=== PATIENT | female | born 1965 | race Caucasian/White ===

== ENCOUNTER 2021-05-31 13:41 | Outpatient (REF) | payer MEDICARE, SELFPAY ==
--- NOTE | ~2021-05-31 | MM_ITS ---
EXAMINATION: MM SCREENING DIGITAL BREAST TOMOSYNTHESIS, BILATERAL CLINICAL INFORMATION: Screening. Asymptomatic. 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 The lifetime risk of breast cancer based on the Tyrer-Cuzick Model is 7%. COMPARISON: Mammography: 06/23/2019, 07/01/2017, 01/17/2015, 01/10/2015 TECHNIQUE: Digital breast tomosynthesis is performed in both the craniocaudal and mediolateral oblique views along with computer-aided detection (CAD). Synthesized 2D images are generated from the tomosynthesis. FINDINGS: There are scattered areas of fibroglandular density (ACR BI-RADS breast composition Category b). The left breast shows no significant change from prior study. Again, there is biopsy clip marker anterior upper outer quadrant corresponding to the known fibroadenoma. There is no developing density or interval mass. Neither breast shows abnormal calcifications. The bilateral axilla and skin contours are unremarkable. The right MLO view has asymmetric density with questionable radiating lines 5 cm from nipple along the posterior nipple line. There is no correlate on CC view. Patient will be recalled for additional imaging. MM/MM tomosynthesis screening BI IMPRESSION: 1. Right: Asymmetric density mid right breast on MLO view with questionable radiating lines. 2. Left: No mammographic evidence of malignancy. ASSESSMENT: BI-RADS 0: Incomplete - Need Additional Imaging Evaluation RECOMMENDATION: 1. Additional views of the right breast (3-D spot MLO, 3-D ML). 2. Targeted ultrasound if warranted after review of the additional views. 3. Radiology department staff will contact the patient for additional imaging. This patient's information was entered into a reminder system with a target due date for their next mammogram.
== END 2021-05-31 13:42 | disposition home or self-care (01) ==
LOC: HO.MAMMO 13:41
PROVIDERS: PCP Internal Medicine; Visit Provider Internal Medicine
DX: Z12.31 Encounter for screening mammogram for malignant neoplasm of breast (principal)
CPT/HCPCS: 77063; 77067

== ENCOUNTER 2021-06-17 09:00 | Outpatient (REF) | payer MEDICARE, SELFPAY ==
--- NOTE | ~2021-06-17 | MM_ITS ---
EXAMINATION: MM DIAGNOSTIC DIGITAL BREAST TOMOSYNTHESIS, RIGHT CLINICAL INFORMATION: Recall from screening for asymmetric density with questionable radiating lines mid right breast limited to MLO view. COMPARISON: Mammography: 05/31/2021, 06/23/2019 TECHNIQUE: Digital breast tomosynthesis is performed. 2D images are generated from the tomosynthesis. The following views are obtained: 3-D spot MLO x2, 3-D ML. FINDINGS: There are scattered areas of fibroglandular density (ACR BI-RADS breast composition Category b). The additional views show no asymmetric density or architectural abnormality. No developing density. Results are provided to the patient at time of visit by the technologist. MM/MM tomosynthesis added views R IMPRESSION: Additional views show no persistent asymmetric density or architectural abnormality. ASSESSMENT: BI-RADS 1: Negative RECOMMENDATION: Routine annual mammography screening. This patient's information was entered into a reminder system with a target due date for their next mammogram.
== END 2021-06-17 09:01 | disposition home or self-care (01) ==
LOC: HO.MAMMO 09:00
PROVIDERS: Visit Provider Internal Medicine
DX: R92.8 Other abnormal and inconclusive findings on diagnostic imaging of breast (principal)
CPT/HCPCS: 77061; 77065

== ENCOUNTER 2022-07-07 10:03 | Outpatient (REF) | payer MEDICARE, SELFPAY ==
--- NOTE | ~2022-07-07 | MM_ITS ---
EXAMINATION: MM SCREENING DIGITAL BREAST TOMOSYNTHESIS, BILATERAL CLINICAL INFORMATION: Screening. Asymptomatic. The lifetime risk of breast cancer based on the Tyrer-Cuzick Model is 9%. COMPARISON: Mammography: 06/17/2021, 05/31/2021, 06/23/2019, 07/01/2017 TECHNIQUE: Digital breast tomosynthesis is performed in both the craniocaudal and mediolateral oblique views along with computer-aided detection (CAD). Synthesized 2D images are generated from the tomosynthesis. FINDINGS: There are scattered areas of fibroglandular density (ACR BI-RADS breast composition Category b). There are no significant masses, abnormal calcifications, or other abnormalities. Parenchymal pattern is similar to prior studies. There is no developing density or architectural abnormality. The axilla and skin contours are unremarkable. No significant changes. MM/MM tomosynthesis screening BI IMPRESSION: No mammographic evidence of malignancy. ASSESSMENT: BI-RADS 1: Negative RECOMMENDATION: Routine annual mammography screening. This patient's information was entered into a reminder system with a target due date for their next mammogram.
== END 2022-07-07 10:04 | disposition home or self-care (01) ==
LOC: HO.MAMMO 10:03
PROVIDERS: PCP Internal Medicine; Visit Provider Internal Medicine
DX: Z12.31 Encounter for screening mammogram for malignant neoplasm of breast (principal)
CPT/HCPCS: 77063; 77067

== ENCOUNTER 2023-07-09 10:13 | Outpatient (REF) | payer OTHER, SELFPAY ==
--- NOTE | ~2023-07-09 | MM_ITS ---
EXAMINATION: MM SCREENING DIGITAL BREAST TOMOSYNTHESIS, BILATERAL CLINICAL INFORMATION: Screening. Asymptomatic. COMPARISON: Mammography: This study is compared with prior exams dating back to 2017. TECHNIQUE: Digital breast tomosynthesis is performed in both the craniocaudal and mediolateral oblique views along with computer-aided detection (CAD). Synthesized 2D images are generated from the tomosynthesis. FINDINGS: There are scattered areas of fibroglandular density (ACR BI-RADS breast composition Category b). There are no significant masses, abnormal calcifications, or other abnormalities. There is tissue marker present in the upper outer quadrant of the left breast from prior benign percutaneous biopsy. MM/MM tomosynthesis screening BI IMPRESSION: No mammographic evidence of malignancy. ASSESSMENT: BI-RADS BI-RADS 2 - Benign Findings RECOMMENDATION: Routine annual mammography screening. 1 year F/U This examination should not preclude the clinical evaluation of a suspicious palpable abnormality. This patient's information was entered into a reminder system with a target due date for their next mammogram.
== END 2023-07-09 10:14 | disposition home or self-care (01) ==
LOC: HO.MAMMO 10:13
PROVIDERS: Visit Provider Internal Medicine
DX: Z12.31 Encounter for screening mammogram for malignant neoplasm of breast (principal)
CPT/HCPCS: 77063; 77067

== ENCOUNTER → 2023-07-09 10:30 | Outpatient (BNV) | payer OTHER, SELFPAY | PROVIDERS: Visit Provider Radiology Diagnostic Radiology | DX: Z12.31 Encounter for screening mammogram for malignant neoplasm of breast (principal) | CPT/HCPCS: 77063; 77067 ==

== ENCOUNTER 2024-07-18 11:37 | Outpatient (REF) | payer OTHER, SELFPAY ==
--- NOTE | ~2024-07-18 | MM_ITS ---
EXAMINATION: MM SCREENING DIGITAL BREAST TOMOSYNTHESIS, BILATERAL CLINICAL INFORMATION: Screening. Asymptomatic. COMPARISON: Mammography: This study is compared with prior exams dating back to 2017. TECHNIQUE: Digital breast tomosynthesis is performed in both the craniocaudal and mediolateral oblique views along with computer-aided detection (CAD). Synthesized 2D images are generated from the tomosynthesis. FINDINGS: There are scattered areas of fibroglandular density (ACR BI-RADS breast composition Category b). There are no significant masses, abnormal calcifications, or other abnormalities. There is a biopsy tissue marker left breast. MM/MM tomosynthesis screening BI IMPRESSION: No mammographic evidence of malignancy. ASSESSMENT: BI-RADS BI-RADS 2 - Benign Findings RECOMMENDATION: Routine annual mammography screening. 1 year F/U This examination should not preclude the clinical evaluation of a suspicious palpable abnormality. This patient's information was entered into a reminder system with a target due date for their next mammogram. Electronically signed by: Ruba Garner MD 08/15/2024 10:01 AM EDT
== END 2024-07-18 11:38 | disposition home or self-care (01) ==
LOC: HO.MAMMO 11:37
PROVIDERS: PCP Internal Medicine; Visit Provider Internal Medicine
DX: Z12.31 Encounter for screening mammogram for malignant neoplasm of breast (principal)
CPT/HCPCS: 77063; 77067

== ENCOUNTER → 2024-07-18 11:45 | Outpatient (BNV) | payer OTHER, SELFPAY | PROVIDERS: PCP Internal Medicine; Visit Provider Radiology Diagnostic Radiology | DX: Z12.31 Encounter for screening mammogram for malignant neoplasm of breast (principal) | CPT/HCPCS: 77063; 77067 ==

== ENCOUNTER 2025-08-15 14:02 | Outpatient (REF) | payer OTHER, SELFPAY ==
--- NOTE | ~2025-08-15 | MM_ITS ---
EXAMINATION: MM SCREENING DIGITAL BREAST TOMOSYNTHESIS, BILATERAL CLINICAL INFORMATION: Screening. Asymptomatic. COMPARISON: Mammography: Comparison is made with available priors TECHNIQUE: Digital breast mammography with tomosynthesis is performed in both the craniocaudal and mediolateral oblique views along with computer-aided detection (CAD). FINDINGS: There are scattered areas of fibroglandular density (ACR BI-RADS breast composition Category b). There are no significant masses, abnormal calcifications, or other abnormalities. MM/MM tomosynthesis screening BI IMPRESSION: No mammographic evidence of malignancy. ASSESSMENT: BI-RADS BI-RADS 1 - Negative RECOMMENDATION: Routine annual mammography screening. 1 year F/U This examination should not preclude the clinical evaluation of a suspicious palpable abnormality. This patient's information was entered into a reminder system with a target due date for their next mammogram. Electronically signed by: Lexi Truong DO 08/18/2025 03:57 PM EDT
--- OUTSIDE RECORDS SUMMARY | 2025-08-15 17:52 | XMS_ITS | Encounter Summary ---
Author Organization [facility] Address [address] [facility] [place] [address] Phone Care Team Providers Care High [employer] Assistant Principal Name Role Phone Gail Miles MD Primary Care Provider [phone] Gail Miles MD Unavailable [phone] Encounter Details Date Type Department Care Team (Late st Contact Info) Description 03/24/2018 Transcribe Orders [facility] [address] [place] [address] Gail Miles MD [address] [place] [address] Routine general medical examination at a health care facility (Primary Dx); Elevated TSH Social History Tobacco Use Types Packs/Day Years Used Date Smoking Tobacco: Never Assessed Comments Unknown Sex and Gender Information Value Date Recorded Sex Assigned at Not on file Legal Sex Female 9:44 PM EDT Gender Identity Not on file Sexual Orientation Not on file documented as of this encounter Plan of Treatment Upcoming Encounters Date Type Department Care Team (Late st Contact Info) Description 08/21/2025 3:00 PM EDT Office Visit [facility] [address] [place] [phone] Jodie Laws [address] [facility], [address] [place] [address] [email or web address] 09/07/2025 8:15 AM EDT Appointment [facility], Bone Density - [address] [address] Gail Miles MD [address] [place] [email or web address] 09/25/2025 2:50 PM EDT Office Visit [facility] [address] [place] [address] Ashanti Slaughter MD [address] [facility], [address] [place] [address] [email or web address] documented as of this encounter Results * (ABNORMAL) Urinalysis (03/24/2018 8:38 AM EDT) COLOR Yellow Yellow [facility] CLARITY Clear [facility] GLUCOSE Negative Negative [facility] BILI Negative Negative [facility] KETONES Negative Negative [facility] SPECIFIC GRAVITY 1.010 1.005 - 1.030 [facility] BLOOD Negative Negative [facility] PH 6.0 5.0 - 8.0 [facility] Protein-UA Negative Negative [facility] NITRITE Negative Negative [facility] Leukocyte esterase, ur 1+(A) Negative [facility] Urine (Urine) 03/24/2018 8:3 8 AM EDT 03/24/2018 8:41 AM EDT us Gail Miles MD URINE ORDERABLES Final Resu lt [facility] [address] [place] [address] * (ABNORMAL) TSH (03/24/2018 8:38 AM EDT) TSH 4.45(H) 0.27 - 4.20 uIU/mL [facility] Blood 03/24/2018 8:38 AM EDT 03/24/2018 8:41 AM EDT Gail Miles MD LAB BLOOD ORDERABLES Final Result Performing Organization Address [facility] Co de Phone Number [address] [address] * CBC (03/24/2018 8:38 AM EDT) WBC 6.85 3.40 - 11.20 K/uL [facility] RBC 4.18 3.80 - 4.80 M/uL [facility] HGB 12.9 12.0 - 15.0 g/dL [facility] HCT 38.5 36.0 - 46.0 % [facility] PLT 268 130 - 400 K/uL [facility] MCV 92.1 79.0 - 98.0 fL [facility] MCH 30.9 27.0 - 34.8 pg [facility] MCHC 33.5 31.5 - 36.0 g/dL [facility] RDW 12.4 10.8 - 14.6 % [facility] MPV 10.5 9.4 - 12.4 fl [facility] NRBC 0.00 /100 WBCs [facility] ABSOLUTE NRBC 0.00 K/uL [facility] Blood 03/24/2018 8:38 AM EDT 03/24/2018 8:41 AM EDT Gail Miles MD LAB BLOOD ORDERABLES Final Result Performing Organization Address [facility] Co de Phone Number [address] [address] * (ABNORMAL) Lipid panel (03/24/2018 8:38 AM EDT) HDL 81 mg/dL [facility] Comment: Interpretation: Risk Level Females Decreased >55mg/dL Average 50-55 mg/dL Increased <50 mg/dL CHOLESTEROL 178 0 - 240 mg/dL [facility] TRIGLYCERIDES 65 30 - 160 mg/dL [facility] LDL 84 50 - 129 mg/dL [facility] Comment: LDL levels in terms of risk for coronary heart disease: <100 mg/dL: Optimal 100-129 mg/dL: Near or above optimal 130-159 mg/dL: Borderline high 160-189 mg/dL: High >190 mg/dL: Very High CARDIAC RISK RATIO 2.2(L) 3.3 - 4.4 C [facility] Blood 03/24/2018 8:38 AM EDT 03/24/2018 8:41 AM EDT us Gail Miles MD LAB BLOOD ORDERABLES Final Result [facility] [address] [place] [address] * (ABNORMAL) Comprehensive metabolic panel (03/24/2018 8:38 AM EDT) SODIUM 138 133 - 146 mmol/L [facility] POTASSIUM 4.2 3.3 - 5.1 mmol/L [facility] CHLORIDE 97 96 - 108 mmol/L [facility] CO2 29 21 - 35 mmol/L [facility] BUN 16 6 - 19 mg/dL [facility] CREATININE 0.70 0.5 - 1.5 mg/dL [facility] GLUCOSE 64(L) 70 - 99 mg/dL [facility] ALBUMIN 4.2 3.9 - 4.8 g/dL [facility] TOTAL PROTEIN 7.2 6.5 - 8.0 g/dL [facility] CALCIUM 9.3 8.4 - 10.3 mg/dL [facility] ALKALINE PHOSPHATASE 86 39 - 117 U/L [facility] TOTAL BILIRUBIN 1.0 0.0 - 1.2 mg/dL [facility] AST 25 0 - 37 U/L [facility] ALT 25 0 - 40 U/L [facility] GLOBULIN 3.0 1 - 4.8 g/dL [facility] EGFR 98 >59 mL/min/1.7 3m2 [facility] Comment:If patient is black, multiply result by 1.159. The eGFR calculation has changed from the MDRD equation to the CKD-EPI equation as of February 02, 2018. ANION GAP 16 10 - 20 mmol/L [facility] Blood 03/24/2018 8:38 AM EDT 03/24/2018 8:41 AM EDT Gail Miles MD LAB BLOOD ORDERABLES Final Result [address] [address] documented in this encounter Visit Diagnoses Diagnosis Routine general medical examination at a health care facility- Primary Elevated TSH Other abnormal blood chemistry documented in this encounter Care Teams High School Assistant Principal Relationship Specialty Start Date End Date Gail Miles MD [address] [place] [address] [email or web address] PCP - General Internal Medicine 11/04/17 Gail Miles MD [address] [place] [phone] Insurance Assigned Provider 04/02/19 03/07/20 documented as of this encounter Additional Source Comments The information contained in this document represents components of the legal health record. It is not the complete legal health record.[facility]
--- OUTSIDE RECORDS SUMMARY | 2025-08-15 17:52 | XMS_ITS | Encounter Summary ---
Author Organization [facility] Address [address] [place] [address] [place] [phone] Phone Care Team Providers Care Tire Fabric Inspector Name Role Phone Gail Miles MD Primary Care Provider Encounter Details Date Type Department Care Team (Latest Contact Info) Description 10/03/2021 Transcribe Orders Virtual Department [address] [place] [address] Grzegorz Hester MD [address] [place] [phone] [email or web address] Elevated alkaline phosphatase level (Primary Dx); Elevated serum gamma-glutamyl transferase level Social History Tobacco Use Types Packs/Day Years Used Date Smoking Tobacco: Never Smokeless Tobacco: Never Alcohol Use Standard Drinks/Week Comments Yes 0 (1 standard drink = 0.6 oz pur e alcohol) a drink a month- Socially Comments No Sex and Gender Information Value Date Recorded Sex Assigned at Not on file Legal Sex Female 9:44 PM EDT Gender Identity Not on file Sexual Orientation Not on file documented as of this encounter Plan of Treatment Upcoming Encounters Date Type Department Care Team (Late st Contact Info) Description 08/21/2025 3:00 PM EDT Office Visit [facility] [address] [place] [address] [place] [address] Jodie Laws [address] [place] [address], [address] [place] [address] [email or web address] 09/07/2025 8:15 AM EDT Appointment [facility], Bone Density - [facility] [address] [place] [address] Gail Miles MD [address] [place] [address] 09/25/2025 2:50 PM EDT Office Visit [facility] [address] [place] [address] Ashanti Slaughter MD [address] [facility], [address] [place] [address] [email or web address] documented as of this encounter Results * US ABDOMEN LIMITED RIGHT UPPER QUADRANT (10/16/2021 8:38 AM EST) Anatomical Region Laterality Modality Abdomen Ultrasound 10/16/2021 8:50 AM EST Impressions 10/16/2021 8:55 AM EST 1.Normal. Narrative 10/16/2021 8:55 AM EST US ABDOMEN LIMITED RIGHT UPPER QUADRANT TECHNIQUE: US Abdominal limited right upper quadrant. COMPARISON: None FINDINGS: Liver: Normal. No focal lesions. Main Portal Vein: Patent with normal direction of flow. Gallbladder: Normal. No gallstones or gallbladder wall thickening. Biliary: Normal. No intrahepatic or extrahepatic biliary ductal dilatation. The common bile duct measures 2 mm. Procedure Note Iker Gleason MD - 10/16/2021 US ABDOMEN LIMITED RIGHT UPPER QUADRANT TECHNIQUE: US Abdominal limited right upper quadrant. COMPARISON: None FINDINGS: Liver: Normal. No focal lesions. Main Portal Vein: Patent with normal direction of flow. Gallbladder: Normal. No gallstones or gallbladder wall thickening. Biliary: Normal. No intrahepatic or extrahepatic biliary ductaldilatation. The common bile duct measures 2 mm. IMPRESSION: 1.Normal. us Grzegorz Hester MD IMG US ABDOMEN Final Resu lt documented in this encounter Visit Diagnoses Diagnosis Elevated alkaline phosphatase level- Primary Elevated serum gamma-glutamyl transferase level Elevated alkaline phosphatase level Elevated serum gamma-glutamyl transferase level documented in this encounter Care Teams Tire Fabric Inspector Relationship Specialty Start Date End Date Gail Miles MD [address] [place] [address] [email or web address] PCP - General Internal Medicine 11/04/17 documented as of this encounter Additional Source Comments The information contained in this document represents components of the legal health record. It is not the complete legal health record.[facility]
--- OUTSIDE RECORDS SUMMARY | 2025-08-15 17:52 | XMS_ITS | Clinical Summary ---
Author Organization [facility] Address [address] [place] [phone] Phone Care Team Providers Care Online Producer Name Role Phone Chaparrita Miles MD Primary Care Provider Allergies Active Allergy Reactions Criticality Noted Date Comments Sulfamethoxazole-Trimethoprim Itching,Rash Low 05/2018 Cephalosporins Itching,Rash Low 07/06/2018 Mold Extracts 08/17/2023 Penicillins Rash Low 07/06/2018 Pollen Extracts 08/17/2023 Medications levothyroxine (SYNTHROID,LEVOT HROID) 25 MCG tablet Take 25 mcg by mouth every morning. Active cholecalciferol (VITAMIN D3) 400 unit tablet Take 400 Units by mouth daily. Active levothyroxine (SYNTHROID, LEVOTHROID) 50 MCG tablet Take 50 mcg by mouth every morning. Extra dose 2 times a week 10/02/2024 Active Active Problems Problem Noted Date Diagnosed Date Subclinical hypothyroidism 11/07/2019 Assessment & Plan (11/07/2019 3:48 PM EST): The patient is chemically and clinically euthyroid with levothyroxine 25 mcg. She is taking the medication appropriately, fasting with water and waiting 30 minutes after eating which apparently is fine since her TSH normalized. Advised her that if she starts taking multivitamins it should be at least 4 hours after the fact. The medication should be taking in the morning because the stomach has to be empty for 4 hours so that there is better absorption of the medication which again does not seem to be a problem. I also inform her that when she does lab work for thyroid function studies she should take the medication that day and must wait at least 2 hours before drawing the blood work so that there is no elevated free T4. 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 We also discussed different supplements such as a bovine and porcine desiccated thyroid. This has combination of both T4 and T3 but the T3 ratio in these products is actually quite high and I really do not recommended especially since we will have the remains that converts T4-T3. Furthermore her thyroid gland is still active and is producing both T4 and T3 hormones. The patient is not going to have a follow-up appointment because she can follow with her primary care physician. She is going to check in the gate way regarding her TPO and thyroglobulin antibodies. 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 Allan's thyroiditis can be treated with selenium to decrease TPO antibodies but there is no evidence that it will prevent thyroid or dysfunction. I advised the patient that she should have thyroid functions checked at least yearly. If she develops excessive symptoms of hypothyroidism such as edema, hair loss, depression, dry skin, constipation associated with her current symptoms and that would be a reason to repeat thyroid function studies before the year. Family history of BRCA gene positive 07/06/2018 Overview (07/06/2018): Second cousin tested positive; maternal cousin and second cousin with breast cancer Encounters Date Type Department Care Team Description 08/01/2025 Telephone [facility] [address] [place] [address] Ashanti Slaughter MD Appointment 07/18/2025 7:23 AM EDT - 07/18/2025 11:59 PM EDT Hospital Encounter [facility] Laboratory [address] [place] [address] Chaparrita Miles MD Discharge Disposition: Home or Self Care 07/18/2025 Transcribe Orders [facility] [address] [place] [address] Chaparrita Miles MD PE (physical exam), annual (Primary Dx); Low vitamin D level; Elevated alkaline phosphatase level from Last 3 Months Immunizations Immunization Administration Dates Next Due COVID-19 (Pre-09/21) Moderna Vaccine, mRNA, PF 02/25/2021 INFLUENZA, SPLIT VIRUS, TRIVALENT PF 09/28/2015 INFLUENZA, SPLIT VIRUS, TRIV ALENT W/ PRESERVATIVE IM 11/03/2016,11/15/2014,10/24/2013,2011 Influenza Quadrivalent MDCK Preservative Free IM 09/23/2019,08/21/2018,09/28/2017 Influenza Quadrivalent Prese rvative Free IM 11/13/2020 Influenza quadrivalent nasal 11/08/2010 Zoster recombinant 12/08/2018,08/21/2018 Family History Medical History Relation Comments Heart disease Father Breast cancer Maternal Cousin Heart attack Maternal Grandfather Asthma Maternal Grandmother Crohn's disease Mother Leukemia Mother Lung cancer Mother Melanoma Mother Uterine cancer Mother Heart disease Paternal Grandfather Heart disease Paternal Grandmother Relation Status Comments Father Alive Maternal Cousin Maternal Grandfather Maternal Grandmother Mother Alive Paternal Grandfather Paternal Grandmother Social History Tobacco Use Types Packs/Day Years Used Date Smoking Tobacco: Never Smokeless Tobacco: Never Tobacco Cessation:Counseling Given: Not Answered Alcohol Use Standard Drinks/Week Comments Yes 0 (1 standard drink = 0.6 oz pure alcohol) a drink a month or less- Socially Child or Family Care Answer Date Record ed Do you have problems with on e of the following making it difficult for you to work, study, or receive health care? No 08/15/2025 Education Answer Date Recorded Are you interested in help w ith more adult education (for example, completing high school, GED, job training, learning the [place] language, technical skills, or developing parenting skills)? No 08/15/2025 Are you concerned about learning? Not on file 08/15/2025 No 08/15/2025 Yes 08/15/2025 Food Answer Date Recorded Within the past 6 months we worried whether our food would run out before we got money to buy more. Never True 08/15/2025 Within the past 6 months the food we bought just didn't last and we didn't have enough money to get more. Never True Residential Stability Answer Date Recor ded What is your housing situation today? I have tonny baig 08/15/2025 How many times have you move d in the past 12 months? Zero (I did not move) 08/15/2025 Paying for Meds Answer Date Recorded Do you have trouble paying for medicines? No 08/15/2025 Paying Utility Bills Answer Date Record ed Do you have trouble paying your heating or elect ricity bill? No 08/15/2025 Transportation Answer Date Recorded Has the lack of transportati on kept you from medical appointments or from getting medications? No 08/15/2025 Digital Access Answer Date Recorded No 08/15/2025 Yes 08/15/2025 Do you have reliable internet access at home? Ye s 08/15/2025 Do you have a device (e.g., phone, tablet, computer) with a working camera? Yes 08/15/2025 Intimate Partner Violence Answer Date R ecorded Are you denied basic needs s uch as food, clothing, or medical care? No 08/15/2025 In the past 12 months have y ou been in a relationship with a person who hurts, threatens, or tries to control you? No 08/15/2025 Are you denied basic needs s uch as food, clothing, or medical care? No 08/15/2025 In the past 12 months have y ou been in a relationship with a person who hurts, threatens, or tries to control you? No 08/15/2025 Comments No Sex and Gender Information Value Date Recorded Sex Assigned at Not on file Legal Sex Female 9:44 PM EDT Gender Identity Not on file Sexual Orientation Not on file Last Filed Vital Signs Vital Sign Reading Time Taken Comments Blood Pressure 106/69 11/15/2024 8:46 AM EST Pulse 70 11/15/2024 8:46 AM EST Temperature 36.3 C (97.4 F) 11/15/2024 8:31 AM EST Respiratory Rate 14 11/15/2024 8:46 AM EST Oxygen Saturation 99% 11/15/2024 8:46 AM EST Inhaled Oxygen Concentration - - Weight 49 kg (108 lb) 11/15/2024 7:40 AM EST Height 154.9 cm (5' 1 ) 11/15/2024 7:40 AM EST Body Mass Index 20.41 11/15/2024 7:40 AM EST Plan of Treatment Upcoming Encounters Date Type Department Care Team (Late st Contact Info) Description 08/21/2025 3:00 PM EDT Office Visit [facility] [address] [place] [address] Jodie Laws [address] [facility] [place] [address] [email or web address] 09/07/2025 8:15 AM EDT Appointment [facility], [facility] D[facility] [address] [place] [address] Chaparrita Miles MD [address] [place] [id number] 09/25/2025 2:50 PM EDT Office Visit [facility] [address] [place] [address] Ashanti Slaughter MD [address] [facility], [address] [place] [address] Health Maintenance Due Date Last Done Comments Adult Td,Tdap Booster 1965 HEPATITIS C SCREENING 1981 HIV ONE-TIME SCREENING (18-65 YEARS) 1981 MAMMOGRAM 2003 COLOGUARD 2008 FIT TEST 2008 FOBT 2008 SIGMOIDOSCOPY 2008 VIRTUAL COLONOSCOPY 2008 PNEUMOCOCCAL VACCINES (50+ years) (1 of 1 - PCV) 2013 INFLUENZA VACCINE (#1) 2025 , 10/03/2023, 09/17/2021, Additional history exists TSH LEVEL 07/18/2026 07/18/2025, 06/2 11/2023, 05/20/2023, Additional history exists DEPRESSION SCREENING 08/15/2026 08/15/2025 PAP SMEAR 08/17/2028 08/17/2023, 08/05/2018, 07/06/2018 LIPID PANEL 07/18/2030 07/18/2025, 06/2 11/2023, 05/20/2023, Additional history exists COLONOSCOPY 11/15/2034 11/15/2024 COLORECTAL CANCER SCREENING 11/15/2034 RSV VACCINE (1 - 1-dose 75+ series) 2038 ZOSTER VACCINES Completed 12/08/2018, 08/21/2018 COVID-19 VACCINE Completed 10/10/2024, 02/2023, 06/10/2022, Additional history exists SMOKING STATUS SCREENING (Once After 26 Yrs) Completed 11/15/2024 HEPATITIS A VACCINES Aged Out No long er eligible based on patient's age to complete this topic HIB VACCINES Aged Out No longer eligi ble based on patient's age to complete this topic MENINGOCOCCAL VACCINES (ACWY) Aged Out No longer eligible based on patient's age to complete this topic MENINGOCOCCAL VACCINES (B) Aged Out N o longer eligible based on patient's age to complete this topic Medical Devices Not on file Procedures Procedure Name Priority Date/Time Associated Diagnosis Comments COMPREHENSIVE METABOLIC PANEL Routine 07/18/2025 7:38 AM EDT PE (physical exam), annual Low vitamin D level Elevated alkaline phosphatase level LIPID PANEL Routine 07/18/2025 7:38 AM EDT PE (physical exam), annual Low vitamin D level Elevated alkaline phosphatase level CBC Routine 07/18/2025 7:38 AM EDT PE (physical exam), annual Low vitamin D level Elevated alkaline phosphatase level 25-OH VITAMIN D Routine 07/18/2025 7:38 AM EDT PE (physical exam), annual Low vitamin D level Elevated alkaline phosphatase level TSH Routine 07/18/2025 7:38 AM EDT PE (physical exam), annual Low vitamin D level Elevated alkaline phosphatase level GGT (GAMMA GLUTAMYL TRANSFERASE) Routine 07/18/2025 7:38 AM EDT PE (physical exam), annual Low vitamin D level Elevated alkaline phosphatase level ALKALINE PHOSPHATASE, FRACTIONATED Routine 07/18/2025 7:38 AM EDT PE (physical exam), annual Low vitamin D level Elevated alkaline phosphatase level ENDOSCOPY, COLON 11/15/2024 7:14 AM EST PAP TEST Routine 08/17/2023 12:00 AM EDT from Last 3 Months or Most Recently Relevant to Health Maintenance Results * (ABNORMAL) Alkaline phosphatase, fractionated (07/18/2025 7:38 AM EDT) Pathologist [facility] ALK PHOS, TOTAL 127(H) 35 - 104 U/L [facility] DPT OF LAB MED AND PAT+ Alkaline Phosphatase Isoenzymes Test component not applicable or not reported. [facility] DPT OF LAB MED AND PAT+ Liver Percent 47.3 30.2 - 74.7 % [facility] DPT OF LAB MED AND PAT+ Liver 60.1 15.8 - 71.9 U/L [facility] DPT OF LAB MED AND PAT+ Bone Percent 44.2 23.8 - 68.3 % [facility] DPT OF LAB MED AND PAT+ Bone 56.1 12.0 - 56.7 U/L [facility] DPT OF LAB MED AND PAT+ Intestine Percent 8.5 <=22.5 % [facility] DPT OF LAB MED AND PAT+ Intestine 10.7 <=12.6 U/L [facility] D[facility] OF LAB MED AND PAT+ Blood 07/18/2025 7:38 AM EDT 07/18/2025 7:43 AM EDT us Chaparrita Miles MD LAB BLOOD ORDERABLES Final Result [facility] DPT OF LAB MED AND PAT+ [address] [place] [address] * (ABNORMAL) Comprehensive metabolic panel (07/18/2025 7:38 AM EDT) Pathologist [facility] SODIUM 142 133 - 146 mmol/L [facility] POTASSIUM 4.8 3.3 - 5.1 mmol/L [facility] CHLORIDE 104 96 - 108 mmol/L [facility] CO2 28 21 - 35 mmol/L [facility] BUN 15 6 - 19 mg/dL [facility] CREATININE 0.90 0.5 - 1.5 mg/dL [facility] GLUCOSE 87 70 - 99 mg/dL [facility] ALBUMIN 4.2 3.9 - 4.8 g/dL [facility] TOTAL PROTEIN 7.1 6.5 - 8.0 g/dL [facility] CALCIUM 9.7 8.4 - 10.3 mg/dL [facility] ALKALINE PHOSPHATASE 123(H) 39 - 117 U/L [facility] TOTAL BILIRUBIN 0.6 0.0 - 1.2 mg/dL [facility] AST 22 0 - 37 U/L [facility] ALT 24 0 - 40 U/L [facility] GLOBULIN 2.9 1 - 4.8 g/dL [facility] EGFR 72 >59 mL/min/1.7 3m2 [facility] Comment:Estimated glomerular filtration rate calculated using the CKD-EPI refit equation. ANION GAP 15 10 - 20 mmol/L [facility] Blood 07/18/2025 7:38 AM EDT 07/18/2025 7:43 AM EDT Chaparrita Miles MD LAB BLOOD ORDERABLES Final Result [address] [address] * 25-OH vitamin D (07/18/2025 7:38 AM EDT) 25 [place] VIT D (TOTAL) 37 30 - 60 ng/mL [facility] Blood 07/18/2025 7:38 AM EDT 07/18/2025 7:43 AM EDT Chaparrita Miles MD LAB BLOOD ORDERABLES Final Result [address] [address] * (ABNORMAL) GGT (Gamma glutamyl transferase) (07/18/2025 7:38 AM EDT) GGT 52(H) 7 - 33 U/L [facility] Blood 07/18/2025 7:38 AM EDT 07/18/2025 7:43 AM EDT Chaparrita Miles MD LAB BLOOD ORDERABLES Final Result Performing Organization Address City/[facility]/ZIP Co de Phone Number [address] [address] * CBC (07/18/2025 7:38 AM EDT) WBC 7.33 4.00 - 11.00 K/uL [facility] RBC 4.34 4.00 - 5.20 M/uL [facility] HGB 13.2 12.0 - 16.0 g/dL [facility] HCT 41.2 36.0 - 46.0 % [facility] PLT 259 150 - 450 K/uL [facility] MCV 94.9 80.0 - 100.0 fL [facility] MCH 30.4 27.0 - 31.0 pg [facility] MCHC 32.0 32.0 - 36.0 g/dL [facility] RDW 12.5 11.5 - 14.5 % [facility] MPV 10.1 8.4 - 12.0 fL [facility] NRBC 0.00 0.00 /100 WBCs [facility] ABSOLUTE NRBC 0.00 0.00 K/uL [facility] Blood 07/18/2025 7:38 AM EDT 07/18/2025 7:43 AM EDT Chaparrita Miles MD LAB BLOOD ORDERABLES Final Result [address] [address] * TSH (07/18/2025 7:38 AM EDT) TSH 2.03 0.27 - 4.20 uIU/mL [facility] Blood 07/18/2025 7:38 AM EDT 07/18/2025 7:43 AM EDT Chaparrita Miles MD LAB BLOOD ORDERABLES Final Result Performing Organization Address [facility] Co de Phone Number [address] [address] * (ABNORMAL) Lipid panel (07/18/2025 7:38 AM EDT) HDL 85 mg/dL [facility] Comment: Interpretation <40 mg/dL: Low HDL cholesterol (major risk factor for CHD) Greater than or equal to 60 mg/dL: High HDL cholesterol ( negative risk factor for CHD) HDL - cholesterol is affected by a number of factors, e.g. smoking, excerise, hormones, sex and age. CHOLESTEROL 211 0 - 240 mg/dL [facility] TRIGLYCERIDES 66 30 - 160 mg/dL [facility] LDL 113 50 - 129 mg/dL [facility] Comment: LDL levels in terms of risk for coronary heart disease: <100 mg/dL: Optimal 100-129 mg/dL: Near or above optimal 130-159 mg/dL: Borderline high 160-189 mg/dL: High >190 mg/dL: Very High CARDIAC RISK RATIO 2.5(L) 3.3 - 4.4 C [facility] Blood 07/18/2025 7:38 AM EDT 07/18/2025 7:44 AM EDT Chaparrita Miles MD LAB BLOOD ORDERABLES Final Result Performing Organization Address [facility] Co de Phone Number [address] [address] * ENDOSCOPY, COLON (11/15/2024 7:14 AM EST) Narrative Transcriptions Estrella Hester MD - 11/15/2024 7:14 AM EST [facility] Patient Name: Opal Loredotl Attending MD:: ESTRELLA HESTER MD, Procedure Date: 11/15/2024 7:14 AM Date of : 1965 Age: 59 Admit Type: Outpatient Gender: Female Room: [place] [address] Referring MD: CHAPARRITA MILES MD Exam Type: Colonoscopy Indications: Screening for colorectal malignant neoplasm, Last colonoscopy: October 2014 Medications: Propofol per Anesthesia Procedure: Informed consent was obtained from the patientafter discussion of the indications, limitations, alternatives, benefits, and risks of the procedure. Risks specifically discussed include but are not limited to medication reactions, missed lesions, bleeding, perforation, or the need for emergent surgery. Throughout the procedure, the patient's blood pressure, pulse, end-tidal CO2, and oxygensaturations were monitored continuously. The Colonoscope was introduced through the anus and advanced to the terminal ileum, with identificationof the appendiceal orifice and IC valve. Thecolonoscopy was performed without difficulty. The patient tolerated the procedure well. The quality of thebowel preparation was excellent. The bowel preparationused was Miralax via split dose instruction. Theterminal ileum, the appendiceal orifice and the rectum were photographed. Complications: No immediate complications. Estimated blood loss:None. Findings: The perianal and digital rectal examinations were normal. Pertinent negatives include no palpablerectal lesions. The entire examined colon appeared normal on direct and retroflexion views. The terminal ileum appeared normal. Retroflexion in the right colon was performed. Impression: - The entire examined colon is normal on direct and retroflexion views. - The examined portion of the ileum was normal. - No specimens collected. Recommendation: - Repeat colonoscopy in 10 years for screening purposes. ESTRELLA HESTER MD 11/15/2024 8:32:43 AM This report has been signed electronically. Number of Addenda: 0 Note Initiated On: 11/15/2024 7:14 AM Procedure Code(s): --- Professional --- 78837, Colonoscopy, flexible; diagnostic, including collection of specimen(s) by brushing or washing, when performed (separateprocedure) --- Technical --- 92484, Colonoscopy, flexible; diagnostic, including collection of specimen(s) by brushing or washing, when performed (separateprocedure) Diagnosis Code(s): --- Professional --- Z12.11, Encounter for screening for malignantneoplasm of colon --- Technical --- Z12.11, Encounter for screening for malignantneoplasm of colon CPT copyright 2021 [employer]. All rights reserved. The codes documented in this report are preliminary and upon studio sales associate reviewmay be revised to meet current compliance requirements. Procedure Date: 11/15/2024 7:14:[address] [place] [address] Chaparrita Miles MD GI PROCEDURE ORDERABLES Fin al Result * Pap Test (08/17/2023 12:00 AM EDT) 08/17/2023 08/18/2023 8:3 9 AM EDT Narrative SEE NARRATIVE - 08/19/2023 2:49 PM EDT [address] [address] Relay Adjuster: Lisa Haddad MD FAMILY REUNIFICATION SPECIALIST Cytology Report FINAL DIAGNOSIS A. PAP SMEAR (SUREPATH) CE: SPECIMEN ADEQUACY: Satisfactory for evaluation; transformation zone present. INTERPRETATION: NEGATIVE FOR INTRAEPITHELIAL LESION OR MALIGNANCY. DIAGNOSIS: Atrophy. Electronically Signed Out By: ALIYAH Franco(ASCP) The Pap test is a screening test primarily for squamous cancers and precursors and has associated false-negative and false-positive results. New technologies such as liquid-based preparations may decrease but will not eliminate all false-negative results. Regular sampling and follow-up of unexplained clinical signs and symptoms are recommended to minimize false negative results. PROCEDURES/ADDENDA HPV Testing (Requested) Ordered Date: 08/18/2023 A. PAP SMEAR (SUREPATH) CE: Human Papilloma Virus Test NEGATIVE for high-risk Human Papilloma Virus types 16, 18, 45 and the Other high risk probe set (Includes 31, 33, 35, 39, 51, 52, 56, 58, 59, 66, 68) Note: Testing performed by [employer] HR-HPV analysis. Clinical correlation is advised. This HPV test was performed at [facility], [address] [place] [address]. This test has been FDA approved for [employer] cervical cytology specimens. The accuracy and precision of this test for all other specimen sources has been verified in the Cytopathology Laboratory of the [facility] and has not been cleared or approved by the U.S. Food and Drug Administration. Clinical correlation is advised. CLINICAL HISTORY Date of Last Menstrual Period: Not Provided Menstrual History: Post Menopausal Other Clinical Conditions: Screening Pap SPECIMEN SOURCE A: PAP SMEAR (SUREPATH) CE Patient Name: SAVI OPAL : 1965 (Age: 58) Sex: F Institution: [facility] Location: [facility] Date of Collection: 08/17/2023 Date of Reported: 08/19/2023 14:49 Results to: Ashanti Slaughter MD Ashanti Slaughter MD CYTOLOGY ORDERABLES Final Res ult SEE NARRATIVE from Last 3 Months or Most Recently Relevant to Health Maintenance Insurance [employer] HMO POS EPO [facility] EPO [facility] POS EPO [facility] POS EPO [facility] POS EPO Care Teams Online Producer Relationship Specialty Start Date End Date Chaparrita Miles MD [address] [place] [address] [email or web address] PCP - General Internal Medicine 11/04/17 Additional Source Comments The information contained in this document represents components of the legal health record. It is not the complete legal health record.[facility]
--- OUTSIDE RECORDS SUMMARY | 2025-08-15 17:52 | XMS_ITS | Encounter Summary ---
Author Organization Formerly [facility] Address [address] [facility] [address] [place] [address] Phone Care Team Providers Care Grounds/Maintenance Specialist Name Role Phone Gail Miles MD Primary Care Provider Encounter Details Date Type Department Care Team (Late st Contact Info) Description 12/19/2021 Transcribe Orders [facility] [address] [place] [address] Gail Miles MD [address] [place] [address] [email or web address] Elevated alkaline phosphatase in (Primary Dx) Social History Tobacco Use Types Packs/Day Years [...] EDT Office Visit [facility] Medicine [address] [place] [address] Jodie Laws [address] [facility], [address] [place] [address] [email or web address] 09/07/2025 8:15 AM EDT Appointment [facility], Bone Density - [address] [address] Gali Miles MD [address] [place] [address] 09/25/2025 2:50 PM EDT Office Visit [facility]ery [address] [place] [address] Ashanti Slaughter MD [address] [facility], [address] [place] [address] [email or web address] documented as of this encounter Results * (ABNORMAL) GGT (Gamma glutamyl transferase) (12/19/2021 11:56 AM EST) Pathologist [facility] GGT 34(H) 7 - 33 U/L [facility] Blood 12/19/2021 11:5 6 AM EST 12/19/2021 12:00 PM EST us Gail Miles MD LAB BLOOD ORDERABLES Final Result [address] [address] * LFTs (hepatic panel) (12/19/2021 11:56 AM EST) ALKALINE PHOSPHATASE 111 39 - 117 U/L [facility] TOTAL BILIRUBIN 0.6 0.0 - 1.2 mg/dL [facility] DIRECT BILIRUBIN <0.2 0 - 0.3 mg/dL [facility] Bilirubin (Indirect) NOT CALCULATED 0 - 1.5 mg/dL [facility] AST 25 0 - 37 U/L [facility] ALT 18 0 - 40 U/L [facility] TOTAL PROTEIN 7.5 6.5 - 8.0 g/dL [facility] ALBUMIN 4.5 3.9 - 4.8 g/dL [facility] GLOBULIN 3.0 1 - 4.8 g/dL [facility] A/G Ratio 1.50 1.00 - 4.80 RATIO [facility] Blood 12/19/2021 11:5 6 AM EST 12/19/2021 12:00 PM EST us Gail Miles MD LAB BLOOD ORDERABLES Final Result Performing Organization Address City/State/[facility] Co de Phone Number [facility] [address] [place] [address] documented in this encounter Visit Diagnoses Diagnosis Elevated alkaline phosphatase in - Primary documented in this encounter Care Teams Grounds/Maintenance Specialist Relationship Specialty Start Date End Date Gail Miles MD [address] [place] [address] [email or web address] PCP - General Internal Medicine 11/04/17 documented as of this encounter Additional Source Comments The information contained in this document represents components of the legal health record. It is not the complete legal health record.[facility]
--- OUTSIDE RECORDS SUMMARY | 2025-08-15 17:52 | XMS_ITS | Encounter Summary ---
Author Organization [facility] Address [address] [facility] [address] [place] [address] Phone Care Team Providers Care Network Strategist Name Role Phone Gail Miles MD Primary Care Provider Gail Miles MD Unavailable [phone] Encounter Details Date Type Department Care Team (Late st Contact Info) Description 11/04/2017 Ancillary Orders [facility], X-Ray - [address] [address] Alexa Salgado PA [address] [place] [address] [email or web address] Cough Social History Tobacco Use Types Packs/Day Years [...] Description 08/21/2025 3:00 PM EDT Office Visit [facility] Medicine [address] [place] [address] Jodie Laws [address] [place] [address], [address] [place] [address] [email or web address] 09/07/2025 8:15 AM EDT Appointment [facility], Bone Density - [facility] [address] [place] [address] Gail Miles MD 15 [place] [address] 09/25/2025 2:50 PM EDT Office Visit [facility] OBGYN & Midwifery [address] [place] [address] Ashanti Slaughter MD [address] [facility], [address] [place] [address] [email or web address] documented as of this encounter Results * XR CHEST PA AND LATERAL 2 VIEWS (11/04/2017 11:40 AM EST) Anatomical Region Laterality Modality Chest Radiographic Ivet ging 11/04/2017 12:0 5 PM EST Addenda Addendum by Jose R Rosario MD on 12/11/2017 7:31 PM EST HISTORY: Cough. COMPARISON: Chest x-ray 12/04/2012. FINDINGS: PA and lateral views. Moderate amount of new patchy airspace opacity within the right lower lobe. No evidence of cavitation. No other evidence of focal infiltrates. No evidence of >>PULMONARY<< edema. No definite pleural effusions. No pneumothorax. No visible lymphadenopathy. Heart size remains normal. No other significant changes. IMPRESSION: New moderate amount of patchy airspace opacity in the right lower lobe compatible with pneumonia. Short-term follow-up chest radiographs after treatment recommended. Edited by: Jennyfer Pierre on 12/11/2017 1:15 PM Impressions 11/04/2017 12:07 PM EST New moderate amount of patchy airspace opacity in the right lower lobe compatible with pneumonia. Short-term follow-up chest radiographs after treatment recommended. POS - [id number] Narrative 11/04/2017 12:07 PM EST HISTORY: Cough. COMPARISON: Chest x-ray 12/04/2012. FINDINGS: PA and lateral views. Moderate amount of new patchy airspace opacity within the right lower lobe. No evidence of cavitation. No other evidence of focal infiltrates. No evidence of primary edema. No definite pleural effusions. No pneumothorax. No visible lymphadenopathy. Heart size remains normal. No other significant changes. Procedure Note Jose R Rosario MD - 11/04/2017 HISTORY: Cough. COMPARISON: Chest x-ray 12/04/2012. FINDINGS: PA and lateral views. Moderate amount of new patchy airspace opacity within the right lowerlobe. No evidence of cavitation. No other evidence of focal infiltrates.No evidence of primary edema. No definite pleural effusions. Nopneumothorax. No visible lymphadenopathy. Heart size remains normal. Noother significant changes. IMPRESSION: New moderate amount of patchy airspace opacity in the right lower lobecompatible with pneumonia. Short-term follow-up chest radiographs aftertreatment recommended. POS - [id number] Alexa MAS IMG XR CHEST Edited Result - Final documented in this encounter Visit Diagnoses Diagnosis Cough Cough documented in this encounter Care Teams Network Strategist Relationship Specialty Start Date End Date Gail Miles MD [address] [place] [address] [email or web address] PCP - General Internal Medicine 11/04/17 Gail Miles MD [address] [place] [address] [email or web address] Insurance Assigned Provider 04/02/19 03/07/20 documented as of this encounter Additional Source Comments The information contained in this document represents components of the legal health record. It is not the complete legal health record.[facility]
--- OUTSIDE RECORDS SUMMARY | 2025-08-15 17:53 | XMS_ITS | Encounter Summary ---
Author Organization [facility] Address [address] [place] [address] [place] [address] Phone Care Team Providers Care Metal Miner Blasting Name Role Phone Gail Miles MD Primary Care Provider Encounter Details Date Type Department Care Team (Late st Contact Info) Description 11/03/2024 Transcribe Orders Virtual Department 30 [place] [address] Gail Miles MD [address] [place] [address] [email or web address] Postmenopausal (Primary Dx) Social History Tobacco Use Types Packs/Day Years Used Date Smoking Tobacco: Never Smokeless Tobacco: Never Alcohol Use Standard Drinks/Week Comments Yes 0 (1 standard drink = 0.6 oz pur e alcohol) a drink a month- Socially Education Answer Date Recorded Are you interested in more education? Not on mini e 03/27/2023 Are you concerned about learning? Not on file 03/27/2023 No 03/27/2023 No 03/27/2023 Digital Access Answer Date Recorded No 04/27/2023 No 04/27/2023 Reliable internet access at home? Not on file 04/27/2023 Device with a working camera? Not on file Comments No Sex and Gender Information Value Date Recorded Sex Assigned at Not on file Legal Sex Female 9:44 PM EDT Gender Identity Not on file Sexual Orientation Not on file documented as of this encounter Plan of Treatment Upcoming Encounters Date Type Department Care Team (Late st Contact Info) Description 08/21/2025 3:00 PM EDT Office Visit [facility] [address] [place] [address] Jodie Laws [address] [facility], [address] [place] [address] [email or web address] 09/07/2025 8:15 AM EDT Appointment [facility], Bone Density - [facility] [address] [place] [address] Gail Miles MD [address] [place] [address] 09/25/2025 2:50 PM EDT Office Visit [facility]YN & Midwifery [address] [place] [address] [place] [address] Ashanti Slaughter MD [address] [facility], [address] [place] [address] Scheduled Orders Name Type Priority Associated Diagnoses Orde r Schedule DXA Screening Imaging Routine Postmenopausal Expected: 12/03/2024, Expires: 11/03/2025 documented as of this encounter Visit Diagnoses Diagnosis Postmenopausal- Primary Asymptomatic postmenopausal status (age-related) (natural) documented in this encounter Care Teams Metal Miner Blasting Relationship Specialty Start Date End Date Gail Miles MD [address] [place] [address] PCP - General Internal Medicine 11/04/17 documented as of this encounter Additional Source Comments The information contained in this document represents components of the legal health record. It is not the complete legal health record.[facility]
--- OUTSIDE RECORDS SUMMARY | 2025-08-15 17:53 | XMS_ITS | Encounter Summary ---
Author Organization [facility] Address [address] [place] [address] Phone Care Team Providers Care Bight Maker Name Role Phone Gail Miles MD Primary Care Provider [phone] Encounter Details Date Type Department Care Team (Late st Contact Info) Description 11/15/2024 Procedure Pass [facility]oscopy Admitting Dept Virtual Department [address] [place] [address] Social History Tobacco Use Types Packs/Day Years Used Date Smoking Tobacco: Never Smokeless Tobacco: Never Alcohol Use Standard Drinks/Week Comments Yes 0 (1 standard drink = 0.6 oz pure alcohol) a drink a month or less- Socially Education Answer Date Recorded Are you interested in more education? Not on mini e 03/27/2023 Are you concerned about learning? Not on file 03/27/2023 No 03/27/2023 No 03/27/2023 Digital Access Answer Date Recorded No 04/27/2023 No 04/27/2023 Reliable internet access at home? Not on file 04/27/2023 Device with a working camera? Not on file Intimate Partner Violence Answer Date R ecorded Are you denied basic needs s uch as food, clothing, or medical care? No 11/15/2024 In the past 12 months have y ou been in a relationship with a person who hurts, threatens, or tries to control you? No 11/15/2024 Are you denied basic needs s uch as food, clothing, or medical care? No 11/15/2024 In the past 12 months have y ou been in a relationship with a person who hurts, threatens, or tries to control you? No 11/15/2024 Comments No Sex and Gender Information Value Date Recorded Sex Assigned at Not on file Legal Sex Female 9:44 PM EDT Gender Identity Not on file Sexual Orientation Not on file documented as of this encounter Plan of Treatment Upcoming Encounters Date Type Department Care Team (Late st Contact Info) Description 08/21/2025 3:00 PM EDT Office Visit [facility] [address] [place] [address] Jodie Laws [address] [facility], [address] [place] [address] [email or web address] 09/07/2025 8:15 AM EDT Appointment [facility], Bone Density - [facility] [address] [place] [address] Gail Miles MD [address] [place] [address] 09/25/2025 2:50 PM EDT Office Visit [facility] OBGYN & Midwifery [address] [place] [address] Ashanti Slaughter MD [address] [facility], [address] [place] [address] [email or web address] documented as of this encounter Visit Diagnoses Not on filedocumented in this encounter Care Teams Bight Maker Relationship Specialty Start Date End Date Gail Miles MD [address] [place] [address] [email or web address] PCP - General Internal Medicine 11/04/17 documented as of this encounter Additional Source Comments The information contained in this document represents components of the legal health record. It is not the complete legal health record.[facility]
== END 2025-08-15 14:03 | disposition home or self-care (01) ==
LOC: HO.MAMMO 14:02
PROVIDERS: PCP Student in an Organized Health Care Education/Training Program; Visit Provider Internal Medicine
DX: Z12.31 Encounter for screening mammogram for malignant neoplasm of breast (principal)
CPT/HCPCS: 77063; 77067

== ENCOUNTER → 2025-08-15 14:15 | Outpatient (BNV) | payer OTHER, SELFPAY | PROVIDERS: PCP Student in an Organized Health Care Education/Training Program; Visit Provider Internal Medicine | DX: Z12.31 Encounter for screening mammogram for malignant neoplasm of breast (principal) | CPT/HCPCS: 77063; 77067 ==